=== PATIENT | female | born 1935 | race Caucasian/White ===

== ENCOUNTER 2019-04-10 08:30 | Day surgery (SDC) | payer MEDICARE ==
[~2019-04-10] VITALS: Ht 170.2 cm; Wt 65.9 kg
[~2019-04-10 08:30] MED LIST: COU5T PO; DULO-31 PO; FERR325T28 PO; FESO8TAB PO; GABA-532 PO; LEVO25TA2 PO; MIRA25TA PO; OMEP-50 PO; PRED5TAB PO; PROG100C11 PO; TRAZ-219 PO
[2019-04-10 09:13] VITALS: BP 165/80
[2019-04-10] MEDS ORDERED: MULT-1085 PO (09:25)
[2019-04-10] MEDS ORDERED: CHOL10002 PO (09:25)
[2019-04-10] MEDS ORDERED: HYDR-4353 PO (09:25)
[2019-04-10] MEDS ORDERED: SERT50TA PO (09:25)
[2019-04-10] MEDS ORDERED: METO50TA17 PO (09:25)
[2019-04-10] MEDS ORDERED: QUET25TA PO (09:25)
[2019-04-10 09:29] LABS: BASOPHILS # (AUTO) 0.1 X10'3 (0-0.2); BASOPHILS % (AUTO) 1.6 % (0-1); EOSINOPHILS # (AUTO) 0.4 X10'3 (0-0.9); EOSINOPHILS % (AUTO) 5.3 % (0-6); HEMATOCRIT 35.8 % (35.0-45.0); HEMOGLOBIN 11.7 g/dl (12.0-16.0); LYMPHOCYTES # (AUTO) 1.2 X10'3 (1.1-4.8); LYMPHOCYTES % (AUTO) 16.5 % (21-51); MEAN CORPUSCULAR HEMOGLOBIN 30.7 PG (27.0-31.0); MEAN CORPUSCULAR HGB CONC 32.8 g/dL (33.0-36.5); MEAN CORPUSCULAR VOLUME 93.5 FL (78-98); MEAN PLATELET VOLUME 8.1 FL (7.4-10.4); MONOCYTES # (AUTO) 0.8 X10'3 (0-0.9); MONOCYTES % (AUTO) 10.7 % (2-12); NEUTROPHILS # (AUTO) 4.6 X10'3 (1.8-7.7); NEUTROPHILS % (AUTO) 65.9 % (42-75); PLATELET COUNT 279 X10'3 (140-440); RED BLOOD COUNT 3.83 X10'6 (4.20-5.60); RED CELL DISTRIBUTION WIDTH 17.7 % (11.5-14.5); WHITE BLOOD COUNT 7.1 X10'3 (4.5-11.0)
[2019-04-10] MEDS ORDERED: ceFAZolin inj. 2,000 MG in normal saline soln 50 ML IV ONE (09:35)
[2019-04-10] MEDS ORDERED: normal saline 1000ml 1,000 ML IV PRN (09:35)
[2019-04-10 09:39] LABS: ALBUMIN 2.7 G/DL (3.4-5.0); ANION GAP 10 (8-16); BLOOD UREA NITROGEN 21 MG/DL (7-18); BUN/CREATININE RATIO 6.6 (6.6-38.0); CALCIUM 8.8 MG/DL (8.5-10.1); CHLORIDE 106 MMOL/L (99-107); GLUCOSE 90 MG/DL (70-104); POTASSIUM 4.2 MMOL/L (3.5-5.1); SODIUM 143 MMOL/L (135-145); TOTAL CARBON DIOXIDE 27.4 MMOL/L (24-32); eGFR 14 ML/MIN
[2019-04-10] MEDS ORDERED: ceFAZolin inj. 2,000 MG in dextrose 5%-water 100 ML IV ONE (09:55)
[2019-04-10] MEDS ORDERED: LIDOcaine 1% 30ml preserv. free vial SQ ONE (10:10)
[2019-04-10] MEDS ORDERED: fentaNYL/PF 50MCG/1 ML 2ML syringe IV PRN (10:10)
[2019-04-10] MEDS ORDERED: heparin 1,000 units/ml 10ml inj ICATH ONE (10:10)
[2019-04-10] MEDS ORDERED: LIDOcaine 1%/PF 5ML 10 MG/ML VIAL ONE (10:29)
[2019-04-10] MEDS ORDERED: fentaNYL/PF 50MCG/1 ML 2ML syringe ONE (10:29)
[2019-04-10] MEDS ORDERED: heparin 1,000unit/ml 10ml vial 10 ML ONE (10:30)
[2019-04-10 11:19] VITALS: BP 162/78
[2019-04-10 11:30] VITALS: BP 168/75
[2019-04-10 11:45] VITALS: BP 184/82
[2019-04-10 12:00] VITALS: BP 178/66
== END 2019-04-10 14:20 ==
LOC: SSTAY O 08:30
PROVIDERS: ATTEND Radiology Diagnostic Radiology
DX: T82.598A Other mechanical complication of other cardiac and vascular devices and implants, initial encounter (principal); Y83.8 Other surgical procedures as the cause of abnormal reaction of the patient, or of later complication, without mention of misadventure at the time of the procedure; Y92.89 Other specified places as the place of occurrence of the external cause; Z79.01 Long term (current) use of anticoagulants; Z79.899 Other long term (current) drug therapy
CPT/HCPCS: 36415; 36581; 76937; 77001; 80048; 85025; 85610; 99152; 99153; C1750; C1769; J0690; J1644; J3010; J7030; J7060; A9270